=== PATIENT | female | born 1990 | race Caucasian/White ===

== ENCOUNTER → 2017-11-16 | Outpatient (CLI) | payer BC, OTHER ==
--- NOTE | 2017-11-16 15:23 | RADIOLOGY IMAGING REPORT ---
FACILITY: [facility] PATIENT NAME: Amber Pope : 1990 MR: [id number] V: [id number] EXAM DATE: ORDERING PHYSICIAN: ROMMEL RAMON TECHNOLOGIST: Location: [facility] - [place] Patient: Amber Pope : 1990 Visit/Account:[id number] Date of Sevice: 11/16/2017 PELVIC ultrasound HISTORY: Right-sided pelvic pain 6-8 months TECHNIQUE: Transabdominal and transvaginal ultrasound pelvis. COMPARISON: None. FINDINGS: Uterus: ; 7.4 cm length x 3.2 cm AP x 3.9 cm transverse. Myometrium: Unremarkable. Endometrium: IUD appears to be in good position; double thickness 4.8 mm. Cervix: Grossly negative. Ovaries: Right - 2 x 1.2 x 2.6 cm Left - 2.1 x 1.8 x 2.3 cm Blood flow is documented in each ovary by duplex Doppler ultrasound. Adnexa: Grossly unremarkable. Free pelvic fluid: None. IMPRESSION: IUD appears to be in good position within the endometrial canal Report Dictated By: Carissa Cohen MD at 11/16/2017 3:13 PM Report E-Signed By: Carissa Cohen MD at 11/16/2017 3:19 PM WSN:[id number]
== END ==
LOC: US 12:16
PROVIDERS: ATTEND Family Medicine
DX: R10.2 Pelvic and perineal pain (principal)
CPT/HCPCS: 76856